=== PATIENT | female | born 1940 | race Two or more races ===

== ENCOUNTER 2020-12-29 16:41 | Inpatient (IN) | payer MEDICARE ==
[~2020-12-29] VITALS: Ht 162.6 cm; Wt 73.6 kg
[2020-12-29 17:19] LABS: Basophils # (auto) 0 10 ^3/uL (0-0.2); Basophils % (auto) 0.2 % (0.0-2.0); Eosinophils # (auto) 0 10 ^3/uL (0-0.8); Eosinophils % (auto) 0.1 % (0.0-7.0); Hematocrit 43.6 % (36.0-46.0); Hemoglobin 14.7 g/dL (12.2-16.2); Lymphocytes # (auto) 1.1 10 ^3/uL (0.4-5.4); Mean Corpuscular Hemoglobin 29.5 pg (28.0-32.0); Mean Corpuscular Hgb Conc. 33.7 g/dL (32.0-36.0); Mean Corpuscular Volume 87.7 fL (80.0-100.0); Monocytes # (auto) 0.7 10 ^3/uL (0-1.3); Neutrophils # (auto) 9.1 10 ^3/uL (1.6-8.6); Neutrophils % (auto) 83.7 % (37.0-80.0); Platelet Count (auto) 297 10^3/uL (140-450); Red Blood Cells 4.97 10^6/uL (4.0-5.20); Red Cell Distribution Width 14.2 % (11.8-14.3); White Blood Cell 10.8 10^3/uL (4.4-10.8)
[2020-12-29 17:34] LABS: Anion Gap 8 (5-15); Blood Urea Nitrogen 29 mg/dL (7-18); Calcium 8.8 mg/dL (8.5-10.1); Carbon Dioxide 29 mmol/L (21-32); Chloride 104 mmol/L (98-107); Glucose 173 mg/dL (74-106); Potassium 3.5 mmol/L (3.5-5.1); Sodium 141 mmol/L (136-145)
[2020-12-29 17:39] LABS: Alanine Aminotransferase 19 U/L (13-56); Alkaline Phosphatase 57 U/L (45-117); Aspartate Aminotransferase 17 U/L (15-37); BUN/Creatinine Ratio 26.9; Bilirubin, Total 0.3 mg/dL (0.2-1.0); GFR African American 63 mL/min; GFR Non-African American 52 mL/min; Total Protein 6.7 g/dL (6.4-8.2)
[2020-12-29 18:04] LABS: INR 0.97 (0.9-1.15); Partial Thromboplastin Time 23.1 sec (23.0-31.2)
[2020-12-29 18:15] LABS: Lactic Acid w/Reflex 2.6 mmol/L (0.4-2.0)
[2020-12-29] MEDS ORDERED: IOHEXOL 350 MG/ML 100ML IJ ONE (19:17)
[2020-12-29] MEDS ORDERED: cefTRIAXone 1GM/50ML D5W 50 ML IV ONE (21:00)
[2020-12-29] MEDS ORDERED: MORPHINE SULF INJ 2 MG/ML SYRINGE 1ML IV PRN (21:45)
[2020-12-29] MEDS ORDERED: NITROGLYCERIN 0.4 MG SL TAB SL PRN (21:45)
[2020-12-29] MEDS ORDERED: ONDANSETRON HCL 4 MG/2 ML VIAL IV PRN (21:45)
[2020-12-29] MEDS ORDERED: DOCUSATE SOD 100 MG CAP PO PRN (21:45)
[2020-12-29] MEDS ORDERED: ACETAMINOPHEN 325 MG TAB PO PRN (21:45)
[2020-12-29] MEDS ORDERED: ALBUTEROL SULF HFA 90MCG INH 200DOSE IN SCH (22:00)
[2020-12-29] MEDS: FAMOTIDINE (10MG/ML) 2ML VL IV SCH (22:46)
[2020-12-29] MEDS: methylPREDNISolone SOD SUCC 40 MG/ML VL IV SCH (22:48)
[2020-12-29] MEDS: ASCORBIC ACID 500 MG TAB PO SCH (22:48)
[2020-12-29] MEDS: SOD CHL 0.45% 1,000 ML IV SCH (22:58)
[2020-12-30 00:12] VITALS: BP 164/75
[2020-12-30 01:33] LABS: Urine Bacteria NONE SEEN /hpf (None Seen); Urine Blood Negative /uL (Negative); Urine Hyaline Cast FEW /lpf (0 - 2); Urine WBC 17 /hpf (0 - 5); Urine WBC Clumps PRESENT /hpf (None Seen)
[2020-12-30 01:37] LABS: Urine Specific Gravity > 1.050 (1.001-1.035)
[2020-12-30] MEDS: HYDROcodone-ACET 5/325MG TAB PO PRN ×2 (01:37→17:06)
[2020-12-30] MEDS ORDERED: HYDROcodone-ACET 5/325MG TAB ONE (01:38)
[2020-12-30] MEDS ORDERED: OMEP20TA PO (04:00)
[2020-12-30] MEDS ORDERED: HYDR-4798 PO (04:00)
[2020-12-30] MEDS ORDERED: FURO20TA3 PO (04:04)
[2020-12-30] MEDS ORDERED: SOTA80TA PO (04:04)
[2020-12-30] MEDS ORDERED: AMLO-489 PO (04:04)
[2020-12-30] MEDS ORDERED: ALPR0.5T7 PO (04:04)
[2020-12-30] MEDS ORDERED: PRED1PAK9 PO (04:04)
[2020-12-30 05:00] VITALS: BP 124/62
[2020-12-30] MEDS ORDERED: methylPREDNISolone SOD SUCC 40 MG/ML VL ONE (05:45)
[2020-12-30] MEDS: methylPREDNISolone SOD SUCC 40 MG/ML VL IV SCH ×3 (06:10→21:36)
[2020-12-30 06:34] LABS: Basophils # (auto) 0 10 ^3/uL (0-0.2); Basophils % (auto) 0.2 % (0.0-2.0); Eosinophils # (auto) 0 10 ^3/uL (0-0.8); Hematocrit 44.2 % (36.0-46.0); Hemoglobin 15.1 g/dL (12.2-16.2); Lymphocytes # (auto) 0.9 10 ^3/uL (0.4-5.4); Lymphocytes % (auto) 10.6 % (10.0-50.0); Mean Corpuscular Hemoglobin 29.6 pg (28.0-32.0); Mean Corpuscular Hgb Conc. 34.1 g/dL (32.0-36.0); Mean Corpuscular Volume 86.7 fL (80.0-100.0); Monocytes # (auto) 0.1 10 ^3/uL (0-1.3); Neutrophils # (auto) 7.5 10 ^3/uL (1.6-8.6); Neutrophils % (auto) 88.2 % (37.0-80.0); Platelet Count (auto) 281 10^3/uL (140-450); Red Cell Distribution Width 14.1 % (11.8-14.3); White Blood Cell 8.5 10^3/uL (4.4-10.8)
[2020-12-30 06:52] LABS: Albumin 2.9 g/dL (3.4-5.0); Potassium 3.4 mmol/L (3.5-5.1)
[2020-12-30 06:55] LABS: BUN/Creatinine Ratio 37.9; Bilirubin, Total 0.2 mg/dL (0.2-1.0); Total Protein 6.5 g/dL (6.4-8.2)
[2020-12-30] MEDS: cefTRIAXone 1GM/50ML D5W 50 ML IV SCH (08:52)
[2020-12-30] MEDS: FAMOTIDINE (10MG/ML) 2ML VL IV SCH (08:53)
[2020-12-30] MEDS: ASCORBIC ACID 500 MG TAB PO SCH ×2 (08:54→21:36)
[2020-12-30] MEDS: ZINC SULFATE 220mg CAP or TAB PO SCH (08:54)
[2020-12-30] MEDS: ENOXAPARIN SOD 40 MG/0.4 ML SYRINGE SC SCH (08:54)
[2020-12-30] MEDS: MULTIPLE VITAMIN TAB PO SCH (08:54)
[2020-12-30 09:00] VITALS: BP 129/63
[2020-12-30] MEDS ORDERED: AZITHROMYCIN 250 MG TAB PO ONE (10:30)
[2020-12-30 13:00] VITALS: BP 149/51
[2020-12-30 17:00] VITALS: BP 158/86
[2020-12-30] MEDS: SOD CHL 0.45% 1,000 ML IV SCH (17:45)
[2020-12-30 22:00] VITALS: BP 148/80
[2020-12-31] MEDS ORDERED: TEMAZEPAM 15 MG CAP PO ONE (00:45)
[2020-12-31 05:00] VITALS: BP 137/75
[2020-12-31] MEDS: methylPREDNISolone SOD SUCC 40 MG/ML VL IV SCH (05:32)
[2020-12-31] MEDS: SOD CHL 0.45% 1,000 ML IV SCH (08:14)
[2020-12-31] MEDS: cefTRIAXone 1GM/50ML D5W 50 ML IV SCH (08:22)
[2020-12-31 09:00] VITALS: BP 146/86
[2020-12-31] MEDS: FAMOTIDINE (10MG/ML) 2ML VL IV SCH (09:56)
[2020-12-31] MEDS: ENOXAPARIN SOD 40 MG/0.4 ML SYRINGE SC SCH (09:57)
[2020-12-31] MEDS: ASCORBIC ACID 500 MG TAB PO SCH (09:57)
[2020-12-31] MEDS: MULTIPLE VITAMIN TAB PO SCH (09:58)
[2020-12-31] MEDS: ZINC SULFATE 220mg CAP or TAB PO SCH (09:58)
[2020-12-31] MEDS ORDERED: AZITHROMYCIN 250 MG TAB PO SCH (10:00)
[2020-12-31 12:37] VITALS: BP 146/86
== END 2020-12-31 13:30 | disposition home or self-care (01) | DRG 193 ==
LOC: ER 16:41 → TELE-WESTW 21:32 → ER 12-30 00:08 → TELE-WESTW 12-30 00:08
PROVIDERS: ADMIT Nurse Practitioner Family; ATTEND Nurse Practitioner Family
DX: J18.9 Pneumonia, unspecified organism (principal); J96.21 Acute and chronic respiratory failure with hypoxia; J44.0 Chronic obstructive pulmonary disease with (acute) lower respiratory infection; J44.1 Chronic obstructive pulmonary disease with (acute) exacerbation; F17.200 Nicotine dependence, unspecified, uncomplicated; E78.5 Hyperlipidemia, unspecified; I10 Essential (primary) hypertension; I27.21 Secondary pulmonary arterial hypertension; G89.29 Other chronic pain; M54.5 Low back pain; R94.6 Abnormal results of thyroid function studies; Z20.822 Contact with and (suspected) exposure to COVID-19; K80.20 Calculus of gallbladder without cholecystitis without obstruction; M16.0 Bilateral primary osteoarthritis of hip; Z82.49 Family history of ischemic heart disease and other diseases of the circulatory system; Z86.16 Personal history of COVID-19; Z87.01 Personal history of pneumonia (recurrent); Z90.710 Acquired absence of both cervix and uterus
CPT/HCPCS: 36415; 71275; 74176; 76705; 80053; 81001; 83036; 83605; 83735; 83880; 84443; 84484; 85025; 85049; 85379; 85610; 85730; 87040; 87426; 93005; 96365; G0378; J0696; J3490

== ENCOUNTER → 2021-01-30 | Outpatient (CLI) | payer MEDICARE, OTHER ==
[~2021-01-30] MED LIST: ALPR0.5T7 PO; AMLO-489 PO; FURO20TA3 PO; HYDR-4798 PO; OMEP20TA PO; PRED1PAK9 PO; SOTA80TA PO
[2021-01-30 09:55] LABS: Basophils # (auto) 0 10 ^3/uL (0-0.2); Basophils % (auto) 0.3 % (0.0-2.0); Eosinophils # (auto) 0.2 10 ^3/uL (0-0.8); Eosinophils % (auto) 1.5 % (0.0-7.0); Hematocrit 43.8 % (36.0-46.0); Hemoglobin 14.9 g/dL (12.2-16.2); Lymphocytes # (auto) 2.4 10 ^3/uL (0.4-5.4); Lymphocytes % (auto) 21.7 % (10.0-50.0); Mean Corpuscular Hemoglobin 29.4 pg (28.0-32.0); Mean Corpuscular Hgb Conc. 33.9 g/dL (32.0-36.0); Mean Corpuscular Volume 86.9 fL (80.0-100.0); Monocytes # (auto) 1.1 10 ^3/uL (0-1.3); Monocytes % (auto) 9.5 % (0.0-12.0); Neutrophils # (auto) 7.5 10 ^3/uL (1.6-8.6); Red Blood Cells 5.04 10^6/uL (4.0-5.20); Red Cell Distribution Width 14.7 % (11.8-14.3); White Blood Cell 11.1 10^3/uL (4.4-10.8)
[2021-01-30 10:31] LABS: Albumin 2.9 g/dL (3.4-5.0); Potassium 3.5 mmol/L (3.5-5.1)
[2021-01-30 10:37] LABS: BUN/Creatinine Ratio 31.3; Bilirubin, Total 0.4 mg/dL (0.2-1.0); Calcium 9.4 mg/dL (8.5-10.1); Total Protein 6.5 g/dL (6.4-8.2)
[2021-01-30 10:38] LABS: Free T3 3.32 pg/mL (2.3-4.2); Free T4 (Free Thyroxine) 1.37 ng/dL (0.89-1.76); T3 Total 1.31 ng/mL (0.60-1.81)
== END | disposition home or self-care (01) ==
LOC: LAB 09:08
PROVIDERS: ATTEND Family Medicine
DX: I10 Essential (primary) hypertension (principal); J44.9 Chronic obstructive pulmonary disease, unspecified; R79.89 Other specified abnormal findings of blood chemistry; E53.8 Deficiency of other specified B group vitamins
CPT/HCPCS: 36415; 80053; 82607; 84439; 84443; 84480; 84481; 85025